=== PATIENT | male | born 1960 | race Caucasian/White ===

== ENCOUNTER → 2025-05-17 13:51 | Outpatient (REF) | payer MEDICARE, SELFPAY | LOC: RCS 13:51 | PROVIDERS: ATTENDING PHYSICIAN Nurse Practitioner Family; FAMILY PHYSICIAN Family Medicine | DX: R94.31 Abnormal electrocardiogram [ECG] [EKG] (principal) | CPT/HCPCS: 93306 ==

== ENCOUNTER → 2025-07-29 09:25 | Outpatient (REF) | payer MEDICARE, SELFPAY | LOC: HWRAD 09:25 | PROVIDERS: ATTENDING PHYSICIAN Internal Medicine Cardiovascular Disease; FAMILY PHYSICIAN Nurse Practitioner Family | DX: I77.810 Thoracic aortic ectasia (principal) | CPT/HCPCS: 71250 ==